=== PATIENT | female | born 1995 | race African-American/Black ===

== ENCOUNTER 2019-11-06 20:10 | Inpatient (IN) | payer OTHER ==
[~2019-11-06] VITALS: Ht 154.9 cm; Wt 63.8 kg
[2019-11-06 20:54] LABS: HEMATOCRIT 39.6 % (36.0-47.0); HEMOGLOBIN 13.8 g/dl (12.0-15.5); MEAN CORPUSCULAR HEMOGLOBIN 27.1 pg (27.0-33.0); MEAN CORPUSCULAR HGB CONC 34.8 g/dl (32.0-36.5); MEAN CORPUSCULAR VOLUME 77.8 fl (80.0-96.0); PLATELET COUNT, AUTOMATED 274 10^3/uL (150-450); RED BLOOD COUNT 5.09 10^6/uL (4.00-5.40); WHITE BLOOD COUNT 4.9 10^3/uL (4.0-10.0)
[2019-11-06 21:37] LABS: ACETAMINOPHEN LEVEL < 2.0 UG/ML (10.0-30.0); ALBUMIN 3.9 GM/DL (3.2-5.2); ALT/SGPT 16 U/L (12-78); BILIRUBIN,DIRECT 0.2 MG/DL (0.0-0.2); BILIRUBIN,TOTAL 0.3 MG/DL (0.2-1.0); BLOOD UREA NITROGEN 10 MG/DL (7-18); CALCIUM LEVEL 9.6 MG/DL (8.5-10.1); CARBON DIOXIDE LEVEL 29 MEQ/L (21-32); CHLORIDE LEVEL 106 MEQ/L (98-107); ETHYL ALCOHOL (ETHANOL) < 0.003 % (0.000-0.010); GLOMERULAR FILTRATION RATE > 60.0 (>60); GLUCOSE, FASTING 94 MG/DL (70-100); POTASSIUM SERUM 3.6 MEQ/L (3.5-5.1); SALICYLATE LEVEL < 1.7 MG/DL (5.0-30.0); SODIUM LEVEL 140 MEQ/L (136-145); THYROID STIMULATING HORMONE 0.444 uIU/ML (0.358-3.740); TOTAL PROTEIN 7.7 GM/DL (6.4-8.2)
[2019-11-06 21:41] LABS: AMPHETAMINES LEVEL URINE NEGATIVE (NEGATIVE); BARBITURATES URINE NEGATIVE (NEGATIVE); BENZODIAZEPINES URINE NEGATIVE (NEGATIVE); CANNABINOIDS URINE NEGATIVE (NEGATIVE); COCAINE METABOLITE URINE NEGATIVE (NEGATIVE); HCG, SERUM QUALITATIVE NEGATIVE (NEGATIVE); METHADONE URINE NEGATIVE (NEGATIVE); OPIATES URINE NEGATIVE (NEGATIVE); PHENCYCLIDINE URINE NEGATIVE (NEGATIVE)
[2019-11-07] MEDS ORDERED: MOM 30ML SUSPENSION UDC PO PRN (02:00)
[2019-11-07] MEDS ORDERED: MAALOX 30 ML SUSP *UDC PO PRN (02:00)
[2019-11-07] MEDS ORDERED: OLANZapine ORAL DISINTEGRATING TAB 5MG PO PRN (02:00)
[2019-11-07] MEDS ORDERED: ACETAMINOPHEN TAB 650MG DOSE (2X325MG) PO PRN (02:00)
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
[2019-11-07 16:00] VITALS: BP 121/66
[2019-11-07] MEDS: zolPIDEM TARTRATE 5 MG TAB PO PRN (21:55)
[2019-11-08 06:34] VITALS: BP 100/59
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
[2019-11-08 17:59] VITALS: BP 106/70
[2019-11-08] MEDS: zolPIDEM TARTRATE 5 MG TAB PO PRN (20:01)
[2019-11-08] MEDS ORDERED: QUEtiapine FUMARATE 50 MG TAB PO ONE (21:30)
[2019-11-09 06:24] VITALS: BP 91/54
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
== END 2019-11-09 10:35 | disposition home or self-care (01) | DRG 882 ==
LOC: M ED 20:10 → M ED INP 11-07 01:56 → M PSY 11-07 03:25
PROVIDERS: ADMIT Psychiatry & Neurology Psychiatry; ATTEND Psychiatry & Neurology Addiction Medicine
DX: F43.12 Post-traumatic stress disorder, chronic (principal); Z91.410 Personal history of adult physical and sexual abuse